=== PATIENT | male | born 1955 | race Caucasian/White ===

== ENCOUNTER 2017-08-27 11:52 | Outpatient (CLI) | payer BC ==
--- NOTE | 2017-08-27 14:31 | MRI ---
LUMBAR SPINE MRI WITH AND WITHOUT CONTRAST: Date: 08/27/17 COMPARISON: None. HISTORY: Low back pain with right lower extremity radiculopathy, pain and numbness for 4-5 weeks. TECHNIQUE: Multiplanar, multisequence MR imaging of the lumbar spine is provided with and without contrast. FINDINGS: The sagittal STIR imaging demonstrates mild degenerative edematous change involving the L4 and L5 justin tebral bodies centered at the L4-5 intervertebral disc. There is mild edema within the pedicle of the left at L5, likely on the basis of degenerative change and/or stress reaction. Assuming five lumbar- type vertebral bodies, the conus medullaris terminates at the T12-L1 level. T12-L1: Intervertebral disc height and signal intensity appears within normal limits. No significant central canal or neural foraminal stenosis is noted. L1-2: There is bilateral facet hypertrophy, right greater than left. There is disc space narrowing and disc desiccation with a right paracentral/right foraminal disc protrusion. There is mild bilateral facet hypertrophy. There is no significant central canal stenosis. There is minimal right lateral recess stenosis with no significant neural foraminal stenosis. L2-3: There is disc space narrowing, disc desiccation, anterior osteophyte formation, and disc bulge. There is a prominent central/right paracentral disc herniation with inferior migration. This causes severe central canal stenosis/right lateral recess stenosis with mass effect on the nerve roots of the caud a equina. There is bilateral facet hypertrophy with mild neural foraminal stenosis, right greater john n left. L3-4: There is disc space narrowing, disc desiccation, and disc bulge. There is concomitant bilateral facet hypertrophy and hypertrophy of the ligamentum flavum with a moderate-severe degree of central canal stenosis. There is moderate/severe neural foraminal stenosis on the left. L4-5: Bilateral laminectomy changes are present with no central canal stenosis. There is disc space narrowi ng with mild disc bulge. There is prominent facet hypertrophy, particularly on the left, with severe left neural foraminal stenosis. Mild right neural foraminal stenosis. L5-S1: There is disc space narrowing, disc desiccation, and disc bulge present. There is no central canal st enosis. Bilateral laminectomy changes are present. There is bilateral facet hypertrophy. There is amber ateral neural foraminal stenosis, moderate in severity, on the basis of osteophyte formation and disc bulge. The postcontrast imaging demonstrates no abnormal enhancement involving the nerve roots of the cauda equina, the intervertebral discs, or the imaged osseous structures. The imaged retroperitoneal structures appear grossly unremarkable. IMPRESSION: Severe multilevel degenerative change seen within the lumbar spine. The most significant finding is a t the L2-3 level where there is a prominent disc herniation in the central/right paracentral region w ith mild inferior migration and severe central canal stenosis/right lateral recess stenosis and assoc iated mass effect on the nerve roots of the cauda equina. There are additional areas of significant c entral canal and neural foraminal stenosis elsewhere within the lumbar spine as detailed above. CODE T. POS: NATY
[2017-08-27] MEDS ORDERED: Gadobenate Dimeglumine 529 MG/1 ML (20ML VIAL) ONE (15:31)
== END 2017-08-27 11:53 | disposition home or self-care (01) ==
LOC: MRI 11:52
PROVIDERS: ATTEND Neurological Surgery
DX: M47.26 Other spondylosis with radiculopathy, lumbar region (principal); M48.061 Spinal stenosis, lumbar region without neurogenic claudication
CPT/HCPCS: 72158; A9579

== ENCOUNTER 2017-09-18 10:46 | Outpatient (CLI) | payer BC ==
--- NOTE | 2017-09-18 12:24 | EKG ---
Test Reason : Blood Pressure : / mmHG Vent. Rate : 066 BPM Atrial Rate : 066 BPM P-R Int : 158 ms QRS Dur : 096 ms QT Int : 400 ms P-R-T Axes : 070 -20 077 degrees QTc Int : 419 ms Normal sinus rhythm Normal ECG When compared with ECG of 20-JUL-2013 10:55, No significant change was found Confirmed by KEVIN BARKER ([id number]) on 09/18/2017 12:24:05 PM Referred By: DEANN Confirmed By:KEVIN BARKER
== END 2017-09-18 10:47 | disposition home or self-care (01) ==
LOC: LABBT 10:46
PROVIDERS: ATTEND Neurological Surgery
DX: Z01.812 Encounter for preprocedural laboratory examination (principal); M54.16 Radiculopathy, lumbar region
CPT/HCPCS: 93005; 93010

== ENCOUNTER 2017-09-25 07:53 | Day surgery (SDC) | payer BC ==
[2017-09-18 11:07] VITALS: BMI 30.8
--- NOTE | 2017-09-24 17:01 | HP ---
HISTORY OF PRESENT ILLNESS: Mr. Liu is known to us for previous lumbar decompression in 2013 for l eft lower extremity radiculopathy, returns today now roughly 5 week's worth of right lower leg pain. This seems to run in the distribution of the superficial fibular nerve; however, he has no weakness nor any numbness, only pain, it is not affecting him in any significant way when lying, sitting, or w hen hanging his legs off the bedside; however, when walking or standing, the pain is severe. At time s, the distribution can be more medial than one would expect for peroneal nerve palsy. He has an MRI that is new performed at [facility] that reveals a new right-sided L2-3 disk herniation a s well as rather tight foraminal stenosis to the right at L5, both of these which I feel like fit emanuel ority portion of his pain. As we discussed further, he does have some upper thigh and groin symptoms . He is to a point now where he would like to treat this surgically if possible. PAST MEDICAL HISTORY: Hyperlipidemia, migraine headaches, left facial nerve palsy and hypertension. CURRENT MEDICATIONS: Wellbutrin, Lipitor, losartan, aspirin, and glucosamine. ALLERGIES: No known drug allergies. PAST SURGICAL HISTORY: Unspecified neck surgery and then a lumbar laminectomy. PHYSICAL EXAMINATION: The patient is alert and oriented x3. Gait is severely antalgic. Lower extre mity motor exam reveals full strength bilaterally in all muscle groups of the lower extremities. He has normal straight leg raise bilaterally. He does have normal Homans and Jos test. He also stock s normal varus and valgus stress test. Reflexes are equal and present bilaterally at the patella. ASSESSMENT: Lumbar radiculopathy. PLAN: Dr. Riddle met with the patient, reviewed imaging and ultimately advocated for right L2 diskect rancho as well as a right L5 foraminotomy. He explained to the patient the risks, benefits, alternative s of the procedure. The patient expressed understanding and would like to move forward with surgery as discussed. I do believe the patient is mentally competent and capable of making medical decisions for himself, and we will move forward with surgery as planned.
[2017-09-25] MEDS ORDERED: CEFAZOLIN/Water 2 GM/20 ML SYRINGE ONE ×2 (09:04→14:30)
[2017-09-25] MEDS ORDERED: Fentanyl 250 MCG/5 ML VIAL ONE (09:48)
[2017-09-25] MEDS ORDERED: Bupivacaine 0.25% HCL 30 ML VIAL ONE (09:55)
--- NOTE | 2017-09-25 10:07 | PRG ---
DATE OF SERVICE: 09/25/2017 Mr. Liu is a 60-year-old gentleman initially evaluated in the outpatient setting in our clinic by Neil Epps for right lower extremity pain. He had an MRI scan at that time which reveals an L2-L3 dis k herniation that is eccentric to the right and also severe right L5 foraminal stenosis, both of whic h create symptoms consistent with his clinical presentation. He did not commit to surgery in the cli delia setting, but did so on a subsequent phone call. I have talked to him by phone and today met him for the first time to again discuss imaging, diagnosis and planned surgical procedure which would be a right L2 diskectomy, and a right L5 foraminotomy. I answered all of his questions. He and I addre ssed surgical plan as well as recovery. He has provided informed consent.
--- NOTE | 2017-09-25 11:34 | OP ---
DATE OF PROCEDURE: 09/25/2017 SURGEON: Leonid Riddle M.D. [employer]ING: Lai Epps PA-C INDICATION: Pain. DIAGNOSIS: Lumbar radiculopathy. PROCEDURES: 1. Right L2 diskectomy. 2. Right L5 foraminotomy. ANESTHESIA: General. TECHNIQUE: The patient was brought into the operating room and placed under general anesthesia. He was flipped from a supine to a prone position on the operating room table. Two separate linear incis ions were planned; one over to L2 and one over L5. After prepping and draping and after an appropria te operative pause, the incision at L2 was created. The soft tissues were swept right of midline. A self-retaining retractor was placed in the wound for optimal exposure. After confirming the appropr iate level, high-speed cutting drill bit as well as 2, 3 and 4-mm Kerrisons were then used to perform a hemilaminectomy along the inferior aspect of L2 on the right. A nerve root retractor was used to mobilize the thecal sac and nerve sheath medially. Extruded disk fragment was identified. An annulo sumeet was performed and protuberance for additional disk was removed. After completely decompressing that segment, we then redirected our attention into the L5 segment where a separate incision was crea olga. The wound was irrigated. After creating the incision, a self-retaining retractor was placed fo r optimal exposure off to the right at L5. Again, a C-arm image was obtained confirming appropriate location. A high-speed cutting drill bit as well as 2, 3 and 4-mm Kerrisons were then used to perfor m a foraminotomy over the proximal half of the exiting L5 nerve root. After decompressing the L5 ner ve root, both wounds were irrigated. Hemostasis was maintained in both incision sites. The wound wa s then closed in anatomic layers and a pressure dressing was applied. There were no known procedural complications.
[2017-09-25] MEDS ORDERED: Fentanyl 100 MCG/2 ML VIAL ONE (12:08)
[2017-09-25] MEDS ORDERED: Tamsulosin HCl 0.4 MG CAP ONE (12:56)
[2017-09-25] MEDS ORDERED: Ondansetron HCl/PF 4 MG/2 ML Vial ONE (15:17)
[2017-09-25] MEDS ORDERED: Propofol 200 MG/20 ML VIAL ONE (15:17)
[2017-09-25] MEDS ORDERED: ePHEDrine/0.9% NaCl/PF SYRINGE 50 mg/10 ml ONE (15:17)
[2017-09-25] MEDS ORDERED: Labetalol HCl 100 MG/20 ML VIAL ONE (15:17)
[2017-09-25] MEDS ORDERED: Glycopyrrolate 0.2 MG/ML 5 ML SYRINGE ONE (15:17)
[2017-09-25] MEDS ORDERED: Lidocaine 1% PF 5 ML VIAL ONE (15:17)
[2017-09-25] MEDS ORDERED: PHENYLEPHRINE-NS 100 MCG/ML 10 ML SYRINGE ONE (15:17)
== END 2017-09-25 15:00 ==
LOC: SDC 07:53
PROVIDERS: ATTEND Neurological Surgery
PROC: 0ST20ZZ Resection of Lumbar Vertebral Disc, Open Approach (ICD-10-PCS; principal; 2017-09-25)
PROC: 01NB0ZZ Release Lumbar Nerve, Open Approach (ICD-10-PCS; principal; 2017-09-25)
DX: M54.16 Radiculopathy, lumbar region (principal); E78.5 Hyperlipidemia, unspecified; G43.909 Migraine, unspecified, not intractable, without status migrainosus; G51.0 Bell's palsy; I10 Essential (primary) hypertension; F17.210 Nicotine dependence, cigarettes, uncomplicated; M19.90 Unspecified osteoarthritis, unspecified site; Z79.82 Long term (current) use of aspirin; Z79.2 Long term (current) use of antibiotics; Z79.899 Other long term (current) drug therapy; Z96.7 Presence of other bone and tendon implants; Z98.890 Other specified postprocedural states
CPT/HCPCS: 76000; 96374; J2001; J2405; J2704; J3010; S0020

== ENCOUNTER 2021-10-17 08:09 | Outpatient (CLI) | payer MEDICARE, BC | END 2021-10-17 08:10 | disposition home or self-care (01) | LOC: TBSIIMAG 08:09 | PROVIDERS: ATTEND Urology | DX: R97.20 Elevated prostate specific antigen [PSA] (principal) | CPT/HCPCS: 72197; 82565 ==

== ENCOUNTER 2021-12-08 22:20 | Emergency (ER) | payer MEDICARE, BC ==
[2021-12-08] MEDS ORDERED: Magnesium 2 GM/50 ML BAG (IN WATER) ONE (23:14)
[2021-12-08] MEDS ORDERED: methylPREDNISolone Sod Succ/PF 125 MG/2 ML VIAL ONE (23:14)
[2021-12-08 23:21] LABS: ALT (SGPT) 23 U/L (8-55); AST (SGOT) 22 U/L (5-34); Albumin 4.3 g/dL (3.4-4.8); Alkaline Phosphatase 99 U/L (40-110); Anion Gap 15 mmol/L (10-20); BUN (Urea Nitrogen) 12 mg/dL (8.4-25.7); Bilirubin, Total 0.4 mg/dL (0.2-1.2); Calc. Creatinine Clearance 0 mL/min (70-130); Calcium 8.7 mg/dL (7.8-10.44); Carbon Dioxide 22 mmol/L (23-31); Chloride 105 mmol/L (98-107); Globulin 2.8 g/dL (2.4-3.5); Glucose 96 mg/dL (80-115); Lipase 22 U/L (8-78); Potassium 4.1 mmol/L (3.5-5.1); Protein, Total 7.1 g/dL (5.8-8.1); Sodium 138 mmol/L (136-145)
[2021-12-08 23:23] LABS: #Eosinphils 0.1 thou/uL (0.0-0.7); #Lymphocytes 1.1 thou/uL (1.20-3.40); #Monocytes 0.8 thou/uL (0.11-0.59); #Neutrophils 5.7 thou/uL (1.40-6.50); %Basophils 0.3 % (0.0-1.0); %Eosinophils 1.2 % (0.0-10.0); %Lymphocytes 13.8 % (21.0-51.0); %Monocytes 10.6 % (0.0-10.0); Hemoglobin 15.8 g/dL (14.0-18.0); Mean Corpuscular Hemoglobin 32.2 pg (27.0-31.0); Mean Corpuscular Volume 97.5 fL (78.0-98.0); Mean Platelet Volume 6.9 fL (7.4-10.4); Platelet Count 186 thou/uL (130-400); Red Blood Cell (RBC) Count 4.91 mill/uL (4.70-6.10); White Blood Cell (WBC) Count 7.7 thou/uL (4.8-10.8)
[2021-12-08 23:36] LABS: CK (CPK) 184 U/L (30-200)
== END 2021-12-09 00:02 | disposition home or self-care (01) ==
LOC: ERS 22:20
DX: J45.909 Unspecified asthma, uncomplicated (principal); I10 Essential (primary) hypertension; E78.5 Hyperlipidemia, unspecified; F17.200 Nicotine dependence, unspecified, uncomplicated
CPT/HCPCS: 71045; 80053; 83690; 83880; 84484; 85025; 93005; 94640; 96365; 96375; J2930; J3475; J7620

== ENCOUNTER 2022-02-13 14:40 | Outpatient (CLI) | payer MEDICARE, BC ==
[2022-02-13 15:29] LABS: #Basophils 0.1 10x3/uL (0.0-0.2); #Eosinphils 0.3 10x3/uL (0.0-0.5); #Monocytes 0.8 10x3/uL (0.0-1.1); #Neutrophils 4.7 10x3/uL (1.5-8.4); %Basophils 0.7 % (0.0-2.0); %Eosinophils 3.3 % (0.0-6.0); %Monocytes 10.4 % (0.0-10.0); %Neutrophils 62.2 % (40.0-75.0); Hemoglobin 14.9 g/dL (13.5-17.5); Mean Corpuscular HGB CONC 34.1 g/dL (32.0-36.0); Mean Corpuscular Hemoglobin 30.8 pg (27.0-33.0); Mean Corpuscular Volume 90.5 fl (81.2-95.1); Mean Platelet Volume 9.2 fl (7.4-10.4); Platelet Count 227 10x3/uL (150-450); RBC Distribution Width 12.6 % (11.5-14.5); Red Blood Cell (RBC) Count 4.83 10x6/uL (4.32-5.72); White Blood Cell (WBC) Count 7.6 10x3/uL (3.5-10.5)
[2022-02-13 15:57] LABS: ALT (SGPT) 20 U/L (8-55); AST (SGOT) 18 U/L (5-34); Albumin 4.2 g/dL (3.4-4.8); Alkaline Phosphatase 80 U/L (40-110); Anion Gap 13 mmol/L (10-20); BUN (Urea Nitrogen) 15 mg/dL (8.4-25.7); Bilirubin, Total 0.4 mg/dL (0.2-1.2); Calc. Creatinine Clearance 0 mL/min (70-130); Calcium 9.2 mg/dL (7.8-10.44); Carbon Dioxide 23 mmol/L (23-31); Chloride 108 mmol/L (98-107); Globulin 2.3 g/dL (2.4-3.5); Glucose 86 mg/dL (80-115); Potassium 4.1 mmol/L (3.5-5.1); Protein, Total 6.5 g/dL (5.8-8.1); Sodium 140 mmol/L (136-145)
[2022-02-14 11:56] LABS: SARS-CoV-2 PCR by NAA Not Detected (NotDetected)
== END 2022-02-13 14:41 | disposition home or self-care (01) ==
LOC: LABBT 14:40
PROVIDERS: ATTEND Internal Medicine Cardiovascular Disease
DX: Z01.812 Encounter for preprocedural laboratory examination (principal); Z20.822 Contact with and (suspected) exposure to COVID-19
CPT/HCPCS: 80053; 85025; U0003; U0005

== ENCOUNTER 2022-02-18 05:45 | Day surgery (SDC) | payer MEDICARE, BC ==
[2022-02-14 12:43] VITALS: BMI 30.7
[2022-02-18] MEDS ORDERED: Heparin 10,000 UNITS/ 10 ML VIAL ONE (06:31)
[2022-02-18] MEDS ORDERED: Lidocaine 1% (PF) 30 ML VIAL ONE (06:31)
[2022-02-18] MEDS ORDERED: Fentanyl 100 MCG/2 ML VIAL ONE (07:08)
[2022-02-18] MEDS ORDERED: Midazolam HCl 2 mg/2 ml Vial ONE (07:08)
[2022-02-18] MEDS ORDERED: Nitroglycerin 4.9 GM Bottle ONE (07:30)
[2022-02-18] MEDS ORDERED: Iopamidol 370 76% 100 ML VIAL ONE (10:21)
== END 2022-02-18 12:19 | disposition home or self-care (01) ==
LOC: CCL 05:45
PROVIDERS: ATTEND Internal Medicine Cardiovascular Disease
PROC: 4A023N7 Measurement of Cardiac Sampling and Pressure, Left Heart, Percutaneous Approach (ICD-10-PCS; principal; 2022-02-18)
PROC: B2111ZZ Fluoroscopy of Multiple Coronary Arteries using Low Osmolar Contrast (ICD-10-PCS; 2022-02-18)
DX: R94.39 Abnormal result of other cardiovascular function study (principal); I25.10 Atherosclerotic heart disease of native coronary artery without angina pectoris; I25.82 Chronic total occlusion of coronary artery; I25.3 Aneurysm of heart; E78.00 Pure hypercholesterolemia, unspecified; I10 Essential (primary) hypertension; Z85.46 Personal history of malignant neoplasm of prostate; Z87.891 Personal history of nicotine dependence; Z79.82 Long term (current) use of aspirin; Z79.899 Other long term (current) drug therapy
CPT/HCPCS: 93458; 99152; 99153; J1644; J2001; J2250; J3010; Q9967

== ENCOUNTER 2022-03-11 07:59 | Outpatient (CLI) | payer MEDICARE, BC | END 2022-03-11 08:00 | disposition home or self-care (01) | LOC: BICCT 07:59 | PROVIDERS: ATTEND Internal Medicine Critical Care Medicine | DX: J43.2 Centrilobular emphysema (principal); I25.10 Atherosclerotic heart disease of native coronary artery without angina pectoris; D35.01 Benign neoplasm of right adrenal gland | CPT/HCPCS: 71250 ==

== ENCOUNTER 2022-05-26 15:08 | Outpatient (CLI) | payer MEDICARE, BC | END 2022-05-26 15:09 | disposition home or self-care (01) | LOC: LABBT 15:08 | PROVIDERS: ATTEND Urology | DX: Z01.818 Encounter for other preprocedural examination (principal); C61 Malignant neoplasm of prostate; J44.9 Chronic obstructive pulmonary disease, unspecified; Z20.822 Contact with and (suspected) exposure to COVID-19 | CPT/HCPCS: 71046; 80053; 81001; 85027; 85610; 85730; 86850; 86900; 86901; 87086; 87811; 93005; 93010 ==

== ENCOUNTER 2022-05-29 05:50 | Observation (INO) | payer MEDICARE, BC ==
[2022-05-26 17:08] LABS: Hemoglobin 14.8 g/dL (13.5-17.5); Mean Corpuscular HGB CONC 34.3 g/dL (32.0-36.0); Mean Corpuscular Hemoglobin 30.9 pg (27.0-33.0); Mean Platelet Volume 10.1 fl (7.4-10.4); Platelet Count 246 10x3/uL (150-450); RBC Distribution Width 12.5 % (11.5-14.5); Red Blood Cell (RBC) Count 4.79 10x6/uL (4.32-5.72); White Blood Cell (WBC) Count 7.3 10x3/uL (3.5-10.5)
[2022-05-26 17:18] LABS: Bilirubin Neg (Negative); Blood, Urine Negative (Negative); Clarity Clear (Clear); Glucose, Urine (Dipstick) Normal (Negative); Ketone, Urine 5 mg/dL (Negative); Leukocyte 100 (Negative); Nitrite Negative (Negative); Protein, Urine (Dipstick) Negative (Neg-Trace); Specific Gravity, Urine 1.025 (1.002-1.036); Urobilinogen Normal mg/dL (Less than 2)
[2022-05-26 17:27] LABS: PTT 25.9 sec (22.0-33.0); Prothrombin Time 10.9 sec (9.5-12.1)
[2022-05-26 17:35] LABS: ALT (SGPT) 31 U/L (8-55); AST (SGOT) 22 U/L (5-34); Albumin 4.4 g/dL (3.4-4.8); Alkaline Phosphatase 76 U/L (40-110); Anion Gap 14 mmol/L (10-20); BUN (Urea Nitrogen) 13 mg/dL (8.4-25.7); Bilirubin, Total 0.5 mg/dL (0.2-1.2); Calc. Creatinine Clearance 0 mL/min (70-130); Calcium 9.7 mg/dL (7.8-10.44); Carbon Dioxide 23 mmol/L (23-31); Chloride 111 mmol/L (98-107); Estimated GFR 79; Globulin 2.5 g/dL (2.4-3.5); Glucose 90 mg/dL (80-115); Potassium 4.2 mmol/L (3.5-5.1); Protein, Total 6.9 g/dL (5.8-8.1); RBC/HPF 0-3 HPF (0-3); Sodium 144 mmol/L (136-145); WBC/HPF 0-3 HPF (0-3)
[2022-05-26 17:36] LABS: Bacteria/HPF None Seen HPF (None Seen); Calcium Oxalate Crystals Rare HPF (None Seen); Mucous/LPF 2+ LPF (<2+); Squamous Epithelial 0-3 HPF (0-3)
[2022-05-27 13:37] VITALS: BMI 27.6
[2022-05-29] MEDS ORDERED: cefOXitin Sodium 1 GM in Sodium Chloride 0.9% 100 ML IVPB SCH (06:30)
[2022-05-29] MEDS ORDERED: Gentamicin Sulfate 80 MG in Premix Bag 1 BAG IVPB SCH (06:30)
[2022-05-29] MEDS ORDERED: Midazolam HCl 2 mg/2 ml Vial ONE (07:01)
[2022-05-29] MEDS ORDERED: Fentanyl 100 MCG/2 ML VIAL ONE (07:01)
[2022-05-29] MEDS ORDERED: Heparin 5,000 UNITS/ML VIAL ONE (07:01)
[2022-05-29] MEDS ORDERED: Lidocaine 1% PF 5 ML VIAL ONE ×2 (07:02→07:52)
[2022-05-29] MEDS ORDERED: Bupivacaine/Epinephrine 0.25% 30 ML VIAL ONE (07:26)
[2022-05-29] MEDS ORDERED: ceFOXitin 1 GM VIAL ONE ×3 (07:38→12:08)
[2022-05-29] MEDS ORDERED: Sodium Chloride 0.9% 100 ML ONE (07:38)
[2022-05-29] MEDS ORDERED: HYDROmorphone 0.5 MG/0.5 ML SYRINGE ONE (07:43)
[2022-05-29] MEDS ORDERED: SUGAMMADEX SODIUM 200 MG/2 ML VIAL ONE (07:43)
[2022-05-29] MEDS ORDERED: fentaNYL Citrate/PF 100 MCG/2 ML SYRINGE ONE (07:43)
[2022-05-29] MEDS ORDERED: Bupivacaine PF 0.5% 30 ML VIAL ONE (07:52)
[2022-05-29] MEDS ORDERED: PROPOFOL 200 MG/20 ML VIAL ONE (07:52)
[2022-05-29] MEDS ORDERED: Ondansetron PF 4 MG/2 ML Vial ONE (07:52)
[2022-05-29] MEDS ORDERED: Dexamethasone 20 MG/5 ML VIAL ONE (07:52)
[2022-05-29] MEDS ORDERED: Rocuronium Bromide 10 MG/ML (10ML VIAL) ONE (07:52)
[2022-05-29] MEDS ORDERED: Glycopyrrolate 0.2 MG/ML 5 ML SYRINGE ONE (07:52)
[2022-05-29] MEDS ORDERED: ePHEDrine 50 MG/ML VIAL ONE (07:52)
[2022-05-29] MEDS ORDERED: Phenylephrine 10 MG/ML VIAL ONE ×2 (07:52→09:50)
[2022-05-29] MEDS ORDERED: B & O ONE (10:56)
[2022-05-29] MEDS ORDERED: ePHEDrine Sulfate 50 MG/10 ML VIAL ONE (12:26)
[2022-05-29] MEDS ORDERED: Ondansetron HCl/PF 4 MG/2 ML Vial IVP PRN (12:30)
[2022-05-29] MEDS ORDERED: Promethazine HCl 25 MG/ML VIAL IVPB PRN (12:30)
[2022-05-29] MEDS ORDERED: HYDROmorphone 2 MG/ML VIAL SLOW IVP PRN (12:30)
[2022-05-29] MEDS ORDERED: Promethazine HCl 25 MG/ML VIAL IM PRN (12:30)
[2022-05-29] MEDS ORDERED: Hyoscyamine Sulfate SL 0.125 mg Tablet SL PRN (12:39)
[2022-05-29] MEDS ORDERED: Sodium Chloride 0.9% 1,000 ML IV SCH (12:39)
[2022-05-29] MEDS ORDERED: Mag-Al 1200 mg/1200 mg/30 ML UDCUP PO PRN (12:39)
[2022-05-29] MEDS ORDERED: Zolpidem Tartrate 5 MG TAB PO PRN (12:39)
[2022-05-29] MEDS ORDERED: oxyCODONE 5 MG TAB PO PRN (12:39)
[2022-05-29] MEDS ORDERED: Oxybutynin 5 MG TAB PO PRN (12:39)
[2022-05-29] MEDS ORDERED: hydrALAZINE 20 MG/ML VIAL SLOW IVP PRN (12:39)
[2022-05-29] MEDS ORDERED: Fentanyl 100 MCG/2 ML VIAL SLOW IVP PRN (12:39)
[2022-05-29] MEDS ORDERED: diphenhydrAMINE 25 MG CAP PO PRN (12:39)
[2022-05-29] MEDS ORDERED: Ondansetron PF 4 MG/2 ML Vial IVP PRN (12:39)
[2022-05-29] MEDS ORDERED: Acetaminophen 500 MG TAB ONE (13:18)
[2022-05-29] MEDS ORDERED: traMADol HCl 50 MG TAB ONE ×2 (13:19)
[2022-05-29] MEDS ORDERED: Ketorolac Tromethamine 30 MG/ML VIAL ONE (13:19)
[2022-05-29 14:07] LABS: Mean Corpuscular HGB CONC 33.4 g/dL (32.0-36.0); Mean Corpuscular Volume 95.8 fL (78.0-98.0); Mean Platelet Volume 6.9 fL (7.4-10.4); Platelet Count 188 thou/uL (130-400); RBC Distribution Width 11.8 % (11.5-14.5); Red Blood Cell (RBC) Count 4.37 mill/uL (4.70-6.10); White Blood Cell (WBC) Count 12.5 thou/uL (4.8-10.8)
[2022-05-29 14:29] LABS: Anion Gap 15 mmol/L (10-20); BUN (Urea Nitrogen) 10 mg/dL (8.4-25.7); Calc. Creatinine Clearance 98 mL/min (70-130); Calcium 8.1 mg/dL (7.8-10.44); Carbon Dioxide 19 mmol/L (23-31); Chloride 110 mmol/L (98-107); Estimated GFR 92; Glucose 174 mg/dL (80-115); Potassium 3.7 mmol/L (3.5-5.1); Sodium 140 mmol/L (136-145)
[2022-05-29] MEDS ORDERED: cefOXitin 1.5 GM, Admixture Fee 1 EACH in Sodium Chloride 0.9% 100 ML IVPB SCH (16:00)
[2022-05-29] MEDS ORDERED: Ketorolac Tromethamine 30 MG/ML VIAL IVP SCH (18:00)
[2022-05-29] MEDS: traMADol HCl 50 MG TAB PO SCH (18:30)
[2022-05-29] MEDS: Acetaminophen 500 MG TAB PO SCH ×2 (18:30→20:41)
[2022-05-29] MEDS: cefOXitin 1.5 GM, Admixture Fee 1 EACH in Sodium Chloride 0.9% 100 ML IVPB SCH (20:41)
[2022-05-29] MEDS: Ketorolac Tromethamine 30 MG/ML VIAL IVP SCH (20:42)
[2022-05-29] MEDS: Docusate 100 MG CAP PO SCH (20:43)
[2022-05-29] MEDS ORDERED: Amlodipine 10 MG TAB PO SCH (21:00)
[2022-05-29] MEDS ORDERED: Losartan 25 MG TAB PO SCH (21:00)
[2022-05-30] MEDS: Ketorolac Tromethamine 30 MG/ML VIAL IVP SCH ×3 (00:29→14:23)
[2022-05-30] MEDS: traMADol HCl 50 MG TAB PO SCH ×3 (00:31→11:23)
[2022-05-30] MEDS: cefOXitin 1.5 GM, Admixture Fee 1 EACH in Sodium Chloride 0.9% 100 ML IVPB SCH ×2 (03:22→11:22)
[2022-05-30] MEDS: Acetaminophen 500 MG TAB PO SCH ×3 (03:22→14:22)
[2022-05-30 06:18] LABS: #Lymphocytes 0.9 thou/uL (1.20-3.40); #Monocytes 1.1 thou/uL (0.11-0.59); #Neutrophils 10.8 thou/uL (1.40-6.50); %Basophils 0.1 % (0.0-1.0); %Eosinophils 0.1 % (0.0-10.0); %Lymphocytes 7.1 % (21.0-51.0); %Monocytes 8.7 % (0.0-10.0); Hemoglobin 13.7 g/dL (14.0-18.0); Mean Corpuscular HGB CONC 33.1 g/dL (32.0-36.0); Mean Corpuscular Hemoglobin 31.5 pg (27.0-31.0); Mean Corpuscular Volume 95.2 fL (78.0-98.0); Mean Platelet Volume 7.4 fL (7.4-10.4); Platelet Count 174 thou/uL (130-400); RBC Distribution Width 11.8 % (11.5-14.5); Red Blood Cell (RBC) Count 4.34 mill/uL (4.70-6.10); White Blood Cell (WBC) Count 12.8 thou/uL (4.8-10.8)
[2022-05-30 06:55] LABS: Anion Gap 12 mmol/L (10-20); BUN (Urea Nitrogen) 10 mg/dL (8.4-25.7); Calc. Creatinine Clearance 98 mL/min (70-130); Calcium 8.5 mg/dL (7.8-10.44); Carbon Dioxide 22 mmol/L (23-31); Chloride 109 mmol/L (98-107); Estimated GFR 92; Glucose 108 mg/dL (80-115); Sodium 139 mmol/L (136-145)
[2022-05-30] MEDS: Docusate 100 MG CAP PO SCH (08:23)
[2022-05-30] MEDS ORDERED: Ezetimibe 10 MG TAB PO SCH (09:00)
[2022-05-30] MEDS ORDERED: Bupropion 150 MG XL TAB PO SCH (09:00)
[2022-05-30] MEDS ORDERED: Enoxaparin Sodium 40 MG/0.4 ML SYRINGE SC SCH (09:00)
[2022-05-30] MEDS ORDERED: Rosuvastatin 20 MG TAB PO SCH (09:00)
[2022-05-30 15:46] VITALS: BP 122/78; TEMP 98.5
== END 2022-05-30 15:45 | disposition home or self-care (01) ==
LOC: SDC 05:50 → SURG B 17:02
PROVIDERS: ADMIT Urology; ATTEND Urology
PROC: 8E0W4CZ Robotic Assisted Procedure of Trunk Region, Percutaneous Endoscopic Approach (ICD-10-PCS; principal; 2022-05-29)
PROC: 0VT04ZZ Resection of Prostate, Percutaneous Endoscopic Approach (ICD-10-PCS; 2022-05-29)
PROC: 0VT34ZZ Resection of Bilateral Seminal Vesicles, Percutaneous Endoscopic Approach (ICD-10-PCS; 2022-05-29)
PROC: 07TC4ZZ Resection of Pelvis Lymphatic, Percutaneous Endoscopic Approach (ICD-10-PCS; 2022-05-29)
DX: C61 Malignant neoplasm of prostate (principal); N52.9 Male erectile dysfunction, unspecified; J44.9 Chronic obstructive pulmonary disease, unspecified; Z79.82 Long term (current) use of aspirin; Z79.899 Other long term (current) drug therapy; Z20.822 Contact with and (suspected) exposure to COVID-19
CPT/HCPCS: 38571; 55866; 80048 ×2; 80053; 81001; 85025; 85027; 85610; 85730; 86850; 86900; 86901; 86920; 87086; 87811; 94640 ×2; C1713 ×2; C1776 ×3; 36415; 88309; J0694; J1100; J1170; J1580; J1644; J1650; J1885; J2250; J2370; J2405; J2704; J3010; J3490; J7620; S0020

== ENCOUNTER 2023-05-08 08:34 | Outpatient (CLI) | payer MEDICARE, BC | END 2023-05-08 08:35 | disposition home or self-care (01) | LOC: SCSMRI 08:34 | PROVIDERS: ATTEND Neurological Surgery | DX: M51.16 Intervertebral disc disorders with radiculopathy, lumbar region (principal); M47.26 Other spondylosis with radiculopathy, lumbar region; R29.898 Other symptoms and signs involving the musculoskeletal system; M47.815 Spondylosis without myelopathy or radiculopathy, thoracolumbar region; M47.817 Spondylosis without myelopathy or radiculopathy, lumbosacral region; M48.061 Spinal stenosis, lumbar region without neurogenic claudication; M48.07 Spinal stenosis, lumbosacral region; M48.05 Spinal stenosis, thoracolumbar region; M51.35 Other intervertebral disc degeneration, thoracolumbar region; M25.78 Osteophyte, vertebrae; Z98.890 Other specified postprocedural states | CPT/HCPCS: 72158 ==

== ENCOUNTER 2023-05-22 08:04 | Day surgery (SDC) | payer MEDICARE, BC ==
[2023-05-20 09:39] VITALS: BMI 28.5
[2023-05-22] MEDS ORDERED: Bupivacaine PF 0.5% 30 ML VIAL ONE (09:19)
[2023-05-22] MEDS ORDERED: EPINEPHrine 1 MG/ML AMP ONE ×2 (09:19→09:43)
[2023-05-22] MEDS ORDERED: fentaNYL 50 mcg/mL 1 mL Vial ONE (09:20)
[2023-05-22] MEDS ORDERED: Famotidine/PF 20 mg/2ml Vial ONE (09:20)
[2023-05-22] MEDS ORDERED: SUGAMMADEX SODIUM 200 MG/2 ML VIAL ONE ×2 (09:20→10:34)
[2023-05-22] MEDS ORDERED: CEFAZOLIN 2 GM VIAL ONE ×2 (09:23→13:23)
[2023-05-22] MEDS ORDERED: Sodium Chloride 0.9% 100 ML ONE ×2 (09:23→13:23)
[2023-05-22] MEDS ORDERED: Albuterol HFA (OR) 200 PUFF INH ONE ×2 (09:25→09:28)
[2023-05-22] MEDS ORDERED: Rocuronium Bromide 10 MG/ML (10ML VIAL) ONE (09:28)
[2023-05-22] MEDS ORDERED: Ketorolac Tromethamine 30 MG/ML VIAL ONE (09:28)
[2023-05-22] MEDS ORDERED: Ondansetron PF 4 MG/2 ML Vial ONE (09:28)
[2023-05-22] MEDS ORDERED: Metoclopramide HCl 10 MG/2 ML VIAL ONE (09:28)
[2023-05-22] MEDS ORDERED: Lidocaine 1% PF 5 ML VIAL ONE (09:28)
[2023-05-22] MEDS ORDERED: Dexamethasone 20 MG/5 ML VIAL ONE (09:28)
[2023-05-22] MEDS ORDERED: PROPOFOL 200 MG/20 ML VIAL ONE (09:28)
[2023-05-22] MEDS ORDERED: PHENYLEPHRINE-NS 100 MCG/ML 10 ML SYRINGE ONE (09:28)
[2023-05-22] MEDS ORDERED: ePHEDrine Sulfate 50 MG/10 ML VIAL ONE (09:28)
[2023-05-22] MEDS ORDERED: Thrombin 5000 UNITS/5 ML VIAL ONE (09:43)
[2023-05-22] MEDS ORDERED: Tamsulosin HCl 0.4 MG CAP ONE (10:52)
[2023-05-22] MEDS ORDERED: Budesonide 0.5 MG/2 ML NEB NEB SCH (12:15)
== END 2023-05-22 14:28 | disposition home or self-care (01) ==
LOC: SDC 08:04
PROVIDERS: ATTEND Neurological Surgery
PROC: 01NB0ZZ Release Lumbar Nerve, Open Approach (ICD-10-PCS; principal; 2023-05-22)
DX: M48.062 Spinal stenosis, lumbar region with neurogenic claudication (principal); C61 Malignant neoplasm of prostate; E78.5 Hyperlipidemia, unspecified; F32.A Depression, unspecified; J44.9 Chronic obstructive pulmonary disease, unspecified; H26.9 Unspecified cataract; R51.9 Headache, unspecified; I10 Essential (primary) hypertension; Z79.82 Long term (current) use of aspirin; Z79.899 Other long term (current) drug therapy
CPT/HCPCS: 63047; J3010; J0171; J1100; J1885; J2405; J2704; J2765; J3490; J7611; J7626; S0020; S0028

== ENCOUNTER 2023-07-30 22:32 | Observation (INO) | payer MEDICARE, BC ==
[2023-07-31] MEDS ORDERED: Aspirin Chewable 81 MG TAB ONE (02:09)
[2023-07-31] MEDS ORDERED: Morphine 4 MG/ML VIAL ONE (02:10)
[2023-07-31] MEDS ORDERED: Ketorolac Tromethamine 30 MG/ML VIAL ONE (02:10)
[2023-07-31] MEDS ORDERED: Ipratropium/Albuterol 3 ML NEB ONE (02:10)
[2023-07-31 02:50] LABS: #Basophils 0.1 thou/uL (0.0-0.2); #Eosinphils 0.3 thou/uL (0.0-0.7); #Monocytes 0.9 thou/uL (0.11-0.59); #Neutrophils 5.1 thou/uL (1.40-6.50); %Basophils 0.6 % (0.0-1.0); %Eosinophils 3.9 % (0.0-10.0); %Lymphocytes 26.7 % (21.0-51.0); %Monocytes 10.1 % (0.0-10.0); %Neutrophils 58.4 % (42.0-75.0); Hematocrit 47.3 % (42.0-52.0); Hemoglobin 15.9 g/dL (14.0-18.0); Mean Corpuscular HGB CONC 33.6 g/dL (32.0-36.0); Mean Corpuscular Hemoglobin 31.2 pg (27.0-31.0); Mean Corpuscular Volume 92.9 fl (78.0-98.0); Mean Platelet Volume 9.1 fL (7.4-10.4); Platelet Count 252 10x3/uL (130-400); RBC Distribution Width 12.3 % (11.5-14.5); Red Blood Cell (RBC) Count 5.09 mill/uL (4.70-6.10); White Blood Cell (WBC) Count 8.7 10x3/uL (4.8-10.8)
[2023-07-31 03:13] LABS: ALT (SGPT) 33 U/L (8-55); AST (SGOT) 35 U/L (5-34); Albumin 4.9 g/dL (3.4-4.8); Alkaline Phosphatase 104 U/L (40-110); Anion Gap 15 mmol/L (10-20); BUN (Urea Nitrogen) 16 mg/dL (8.4-25.7); Bilirubin, Total 0.3 mg/dL (0.2-1.2); Calc. Creatinine Clearance 0 mL/min (70-130); Calcium 9.8 mg/dL (7.8-10.44); Carbon Dioxide 23 mmol/L (23-31); Chloride 106 mmol/L (98-107); Estimated GFR 93; Globulin 3.1 g/dL (2.4-3.5); Glucose 94 mg/dL (80-115); Lipase 21 U/L (8-78); Potassium 4.1 mmol/L (3.5-5.1); Sodium 140 mmol/L (136-145)
[2023-07-31 03:16] LABS: Troponin I 0.016 ng/mL (< 0.028)
[2023-07-31] MEDS ORDERED: Ondansetron ODT 4 MG TAB PO PRN (04:25)
[2023-07-31] MEDS ORDERED: Senokot S 8.6-50 MG TAB PO PRN (04:25)
[2023-07-31] MEDS ORDERED: Acetaminophen 325 MG TAB PO PRN (04:25)
[2023-07-31] MEDS ORDERED: Nicotine 14 MG PATCH TD PRN (04:26)
[2023-07-31 04:27] LABS: Bacteria/HPF None Seen HPF (None Seen); Bilirubin Negative (Negative); Blood, Urine Negative (Negative); CAUTI Indications for Culture Dysuria,urgency,freq; Clarity Clear (Clear); Glucose, Urine (Dipstick) Normal (Negative); Ketone, Urine Negative (Negative); Leukocyte Negative Leu/uL (Negative); Nitrite Negative (Negative); Protein, Urine (Dipstick) Negative (Neg-Trace); RBC/HPF 0-3 HPF (0-3); Specific Gravity, Urine 1.024 (1.002-1.036); Squamous Epithelial None Seen HPF (0-3); Urobilinogen Normal mg/dL (Less than 2); WBC/HPF 0-3 HPF (0-3)
[2023-07-31 04:29] LABS: Urine Culture Reflex No No
[2023-07-31] MEDS ORDERED: Ipratropium/Albuterol 3 ML NEB NEB SCH (06:30)
[2023-07-31 06:39] LABS: Troponin I Less than 0.010 ng/mL (< 0.028)
[2023-07-31] MEDS ORDERED: Ipratropium/Albuterol 3 ML NEB NEB PRN (08:41)
[2023-07-31] MEDS ORDERED: methylPREDNISolone Sod Succ/PF 125 MG/2 ML VIAL IVP SCH ×2 (08:42→12:00)
[2023-07-31 08:53] LABS: Troponin I 0.013 ng/mL (< 0.028)
[2023-07-31] MEDS ORDERED: Famotidine 20 MG TAB PO SCH (09:00)
[2023-07-31] MEDS ORDERED: Aspirin 81 mg Enteric Coated Tablet PO SCH (09:00)
[2023-07-31] MEDS ORDERED: Diclofenac 1% 50 GM TOPICAL GEL TP SCH (09:00)
[2023-07-31] MEDS ORDERED: BuPROPion XL 150 MG ER.TAB PO SCH (09:00)
[2023-07-31] MEDS ORDERED: Rosuvastatin 20 MG TAB PO SCH (09:00)
[2023-07-31] MEDS ORDERED: Loratadine 10 MG TAB PO SCH (09:00)
[2023-07-31] MEDS ORDERED: Cholecalciferol 1,000 UNITS (25 MCG) TAB PO SCH (09:00)
[2023-07-31] MEDS ORDERED: hydrALAZINE 20 MG/ML VIAL SLOW IVP PRN (09:57)
[2023-07-31] MEDS: Ipratropium/Albuterol 3 ML NEB NEB SCH ×2 (10:43→14:09)
[2023-07-31] MEDS ORDERED: Losartan 25 MG TAB PO SCH ×2 (10:45→21:00)
[2023-07-31] MEDS ORDERED: Amlodipine 10 MG TAB PO SCH ×2 (10:45→21:00)
[2023-07-31 11:12] VITALS: BP 173/92; TEMP 98.1
[2023-07-31 11:51] VITALS: BMI 30.4
[2023-07-31] MEDS ORDERED: Ezetimibe 10 MG TAB PO SCH (21:00)
[2023-07-31] MEDS ORDERED: Budesonide 0.5 MG/2 ML NEB NEB SCH (21:00)
[2023-08-01] MEDS ORDERED: Amlodipine 10 MG TAB PO SCH (09:00)
[2023-08-01] MEDS ORDERED: Losartan 25 MG TAB PO SCH (09:00)
== END 2023-07-31 16:14 | disposition home or self-care (01) ==
LOC: ERS 22:32 → 2SW 07-31 04:42 → ERHOLD 07-31 04:44 → 2SW 07-31 07:25
PROVIDERS: ADMIT Student in an Organized Health Care Education/Training Program; ATTEND Internal Medicine
DX: R07.9 Chest pain, unspecified (principal); I25.10 Atherosclerotic heart disease of native coronary artery without angina pectoris; J44.1 Chronic obstructive pulmonary disease with (acute) exacerbation; I10 Essential (primary) hypertension; E78.5 Hyperlipidemia, unspecified; Z98.890 Other specified postprocedural states; F17.200 Nicotine dependence, unspecified, uncomplicated; Z79.82 Long term (current) use of aspirin; Z79.899 Other long term (current) drug therapy
CPT/HCPCS: 71045; 80053; 81001; 83690; 84484 ×2; 85025; 93005; 93306; 94640 ×2; 96374; 96375 ×2; 99285; G0378 ×2; 36415; J1885; J2270; J2930; J7620

== ENCOUNTER 2024-04-12 10:07 | Outpatient (CLI) | payer MEDICARE, BC | END 2024-04-12 10:08 | disposition home or self-care (01) | LOC: RAD 10:07 | PROVIDERS: ATTEND Internal Medicine Critical Care Medicine | DX: R06.00 Dyspnea, unspecified (principal) | CPT/HCPCS: 71046 ==

== ENCOUNTER 2025-06-17 19:34 | Emergency (ER) | payer MEDICARE, BC ==
[2025-06-17 21:37] LABS: #Basophils 0.08 10x3/uL (0.0-0.2); #Eosinophils 0.28 10x3/uL (0.0-0.7); #Monocytes 0.90 10x3/uL (0.11-0.59); #Neutrophils 6.81 10x3/uL (1.40-6.50); %Basophils 0.8 % (0.0-1.0); %Eosinophils 2.7 % (0.0-10.0); %Lymphocytes 22.8 % (21.0-51.0); %Monocytes 8.6 % (0.0-10.0); %Neutrophils 64.7 % (42.0-75.0); Hematocrit 48.9 % (42.0-52.0); Hemoglobin 16.4 g/dL (14.0-18.0); Mean Corpuscular Hemoglobin 30.9 pg (27.0-31.0); Mean Corpuscular Volume 92.1 fL (78.0-98.0); Platelet Count 231 10x3/uL (130-400); Red Blood Cell (RBC) Count 5.31 mill/uL (4.70-6.10); White Blood Cell (WBC) Count 10.50 10x3/uL (4.8-10.8)
[2025-06-17 21:53] LABS: INR-International Normal Ratio 1.1; Prothrombin Time 13.9 sec (12.0-14.7)
[2025-06-17 21:54] LABS: PTT 29.2 sec (22.9-36.1)
[2025-06-17 21:56] LABS: ALT (SGPT) 26 U/L (Less than 45); AST (SGOT) 28 U/L (11-34); Albumin 4.5 g/dL (3.1-4.5); Alkaline Phosphatase 90 U/L (40-110); Anion Gap 16 mmol/L (10-20); BUN (Urea Nitrogen) 17 mg/dL (8.4-25.7); Bilirubin, Total 0.7 mg/dL (0.3-1.2); Calc. Creatinine Clearance 0 mL/min (70-130); Calcium 10.3 mg/dL (7.8-10.44); Carbon Dioxide 26 mmol/L (23-31); Chloride 106 mmol/L (98-107); Globulin 2.8 g/dL (2.4-3.5); Glucose 96 mg/dL (80-115); Potassium 4.3 mmol/L (3.5-5.1); Sodium 144 mmol/L (136-145)
[2025-06-17] MEDS ORDERED: Ondansetron PF 4 MG/2 ML Vial ONE (22:48)
== END 2025-06-17 23:15 | disposition home or self-care (01) ==
LOC: ERS 19:34
DX: S22.42XA Multiple fractures of ribs, left side, initial encounter for closed fracture (principal); I10 Essential (primary) hypertension; J44.9 Chronic obstructive pulmonary disease, unspecified; E78.5 Hyperlipidemia, unspecified; F17.210 Nicotine dependence, cigarettes, uncomplicated; Z79.82 Long term (current) use of aspirin; Z79.899 Other long term (current) drug therapy; W01.0XXA Fall on same level from slipping, tripping and stumbling without subsequent striking against object, initial encounter; Y93.01 Activity, walking, marching and hiking
CPT/HCPCS: 71101; 71250; 80053; 84484; 85025; 85610; 85730; 86850; 86900; 86901; 93005; J2270; J2405; 36415; 96374; 96375

== ENCOUNTER 2025-06-22 09:10 | Observation (INO) | payer MEDICARE, BC ==
[2025-06-22 10:46] LABS: #Basophils 0.04 10x3/uL (0.0-0.2); #Eosinophils 0.21 10x3/uL (0.0-0.7); #Monocytes 0.86 10x3/uL (0.11-0.59); #Neutrophils 8.87 10x3/uL (1.40-6.50); %Basophils 0.4 % (0.0-1.0); %Eosinophils 1.9 % (0.0-10.0); %Lymphocytes 10.9 % (21.0-51.0); %Monocytes 7.6 % (0.0-10.0); %Neutrophils 78.8 % (42.0-75.0); Hematocrit 45.6 % (42.0-52.0); Hemoglobin 14.9 g/dL (14.0-18.0); Mean Corpuscular Hemoglobin 30.6 pg (27.0-31.0); Mean Corpuscular Volume 93.6 fL (78.0-98.0); Platelet Count 211 10x3/uL (130-400); Red Blood Cell (RBC) Count 4.87 mill/uL (4.70-6.10); White Blood Cell (WBC) Count 11.25 10x3/uL (4.8-10.8)
[2025-06-22 11:29] LABS: ALT (SGPT) 24 U/L (Less than 45); AST (SGOT) 22 U/L (11-34); Albumin 4.1 g/dL (3.1-4.5); Alkaline Phosphatase 99 U/L (40-110); Anion Gap 10 mmol/L (10-20); BUN (Urea Nitrogen) 10 mg/dL (8.4-25.7); Bilirubin, Total 0.5 mg/dL (0.3-1.2); Calc. Creatinine Clearance 0 mL/min (70-130); Calcium 9.1 mg/dL (7.8-10.44); Carbon Dioxide 27 mmol/L (23-31); Chloride 108 mmol/L (98-107); Globulin 2.8 g/dL (2.4-3.5); Glucose 104 mg/dL (80-115); Magnesium 2.2 mg/dL (1.6-2.6); Potassium 4.0 mmol/L (3.5-5.1); Sodium 141 mmol/L (136-145)
[2025-06-22] MEDS ORDERED: cefTRIAXone (ROCEPHIN) 2 GM VIAL ONE (11:34)
[2025-06-22] MEDS ORDERED: Acetaminophen 325 MG TAB PO PRN (12:53)
[2025-06-22] MEDS ORDERED: Melatonin 3 MG TAB PO PRN (12:53)
[2025-06-22] MEDS ORDERED: Ondansetron PF 4 MG/2 ML Vial IVP PRN (12:53)
[2025-06-22] MEDS ORDERED: Losartan 25 MG TAB ONE (13:03)
[2025-06-22 16:10] VITALS: BMI 29.5
[2025-06-23 05:01] LABS: #Basophils Less than 0.03 10x3/uL (0.0-0.2); #Eosinophils Less than 0.03 10x3/uL (0.0-0.7); #Monocytes 0.19 10x3/uL (0.11-0.59); #Neutrophils 8.06 10x3/uL (1.40-6.50); %Basophils 0.1 % (0.0-1.0); %Eosinophils 0.0 % (0.0-10.0); %Lymphocytes 6.3 % (21.0-51.0); %Monocytes 2.1 % (0.0-10.0); %Neutrophils 91.2 % (42.0-75.0); Hematocrit 41.3 % (42.0-52.0); Hemoglobin 13.6 g/dL (14.0-18.0); Mean Corpuscular Hemoglobin 30.3 pg (27.0-31.0); Mean Corpuscular Volume 92.0 fL (78.0-98.0); Platelet Count 186 10x3/uL (130-400); Red Blood Cell (RBC) Count 4.49 mill/uL (4.70-6.10); White Blood Cell (WBC) Count 8.85 10x3/uL (4.8-10.8)
[2025-06-23 05:17] LABS: Anion Gap 13 mmol/L (10-20); BUN (Urea Nitrogen) 17 mg/dL (8.4-25.7); Calc. Creatinine Clearance 108 mL/min (70-130); Calcium 9.1 mg/dL (7.8-10.44); Carbon Dioxide 24 mmol/L (23-31); Chloride 109 mmol/L (98-107); Glucose 163 mg/dL (80-115); Potassium 4.0 mmol/L (3.5-5.1); Sodium 142 mmol/L (136-145)
[2025-06-23] MEDS: Enoxaparin 40 MG (0.4 mL) SYRINGE SC SCH (09:05)
[2025-06-23] MEDS: cefTRIAXone\\ROCEPHIN 1 GM in Sodium Chloride 0.9% 100 ML IVPB SCH (11:07)
[2025-06-23 12:15] VITALS: BP 151/80; TEMP 97.9
[2025-06-23] MEDS: Azithromycin 500 MG in Sodium Chloride 0.9% 250 ML 250 ML IVPB SCH (13:36)
[2025-06-23] MEDS: Azithromycin 250 MG TAB PO SCH (14:00)
== END 2025-06-23 16:40 | disposition home or self-care (01) ==
LOC: ERS 09:10 → SURG A 12:59
PROVIDERS: ADMIT Internal Medicine; ATTEND Hospitalist
DX: J44.1 Chronic obstructive pulmonary disease with (acute) exacerbation (principal); I10 Essential (primary) hypertension; E78.5 Hyperlipidemia, unspecified; F17.200 Nicotine dependence, unspecified, uncomplicated; Z85.46 Personal history of malignant neoplasm of prostate; Z88.5 Allergy status to narcotic agent; Z79.82 Long term (current) use of aspirin; Z79.899 Other long term (current) drug therapy
CPT/HCPCS: 71046; 80048; 80053; 83605; 83735; 83880; 84484; 85025 ×2; 87040; 93005; 94640 ×2; 96365; 96367; 96375; 99285; J0696 ×2; J1650; J2919 ×3; 36415; 87076; J7620